=== PATIENT | female | born 1975 | race Native Hawaiian/Other Pacific Islander ===

== ENCOUNTER 2019-03-24 06:32 | Outpatient (CLI) | payer OTHER ==
[~2019-03-24 06:32] MED LIST: IRON325 MG PO
[2019-03-24 07:09] LABS: PLATELET COUNT 307 K/uL (152-353)
[2019-03-24 07:31] LABS: POTASSIUM 4.2 mmol/L (3.6-5.2)
== END 2019-03-24 23:38 | disposition home or self-care (01) ==
LOC: LABW 06:32
PROVIDERS: Internal Medicine
DX: R07.9 Chest pain, unspecified (principal)
CPT/HCPCS: 36415; 80053; 80061; 84443; 85027; 85379

== ENCOUNTER 2019-08-06 07:39 | Outpatient (CLI) | payer OTHER ==
[2019-08-06 08:10] LABS: PLATELET COUNT 350 K/uL (152-353)
[2019-08-06 08:38] LABS: POTASSIUM 4.4 mmol/L (3.6-5.2)
== END 2019-08-06 21:18 | disposition home or self-care (01) ==
LOC: LABW 07:39
PROVIDERS: Internal Medicine
DX: Z00.00 Encounter for general adult medical examination without abnormal findings (principal)
CPT/HCPCS: 36415; 80053; 80061; 81000; 82607; 83036; 83540; 84439; 84443; 85027

== ENCOUNTER 2021-10-25 10:52 | Emergency (ER) | payer BC ==
[~2021-10-25] VITALS: Ht 172.7 cm; Wt 79.4 kg
[2021-10-25 11:12] LABS: PLATELET COUNT 354 K/uL (152-353)
[2021-10-25 11:20] LABS: POTASSIUM 4.3 mmol/L (3.6-5.2); SODIUM 135 mmol/L (136-145)
[2021-10-25 11:41] LABS: PARTIAL THROMBOPLASTIN TIME 27.6 SECONDS (24.5-33.6)
[2021-10-25 12:31] VITALS: BP 135/88; TEMP 97.8
== END 2021-10-25 12:34 | disposition home or self-care (01) ==
LOC: ED 10:52
PROVIDERS: Emergency Medicine
DX: M62.838 Other muscle spasm (principal); R71.8 Other abnormality of red blood cells
CPT/HCPCS: 80053; 84484; 85027; 85379; 85610; 85730; 93005; 96365; 96375; 99284; J1885; J2360

== ENCOUNTER 2022-07-16 09:40 | Outpatient (CLI) | payer BC ==
[2022-07-16 10:08] LABS: PLATELET COUNT 299 K/uL (152-353)
== END 2022-07-16 19:15 | disposition home or self-care (01) ==
LOC: LABW 09:40
PROVIDERS: ATTEND Internal Medicine
DX: M54.2 Cervicalgia (principal); R09.1 Pleurisy
CPT/HCPCS: 36415; 80053; 85027; 85379; 85652; Q9963